=== PATIENT | female | born 1970 | race Hispanic/Latino ===

== ENCOUNTER 2016-08-26 19:08 | Emergency (ER) | payer OTHER ==
[~2016-08-26] VITALS: Ht 162.6 cm; Wt 85.9 kg
[~2016-08-26 19:08] MED LIST: DICY20TA33 PO; HYDR-4003 PO; IBUP-1827 PO; LACT10SO60 PO; LISI10TA PO; NAPR250T PO
[2016-08-26 19:15] VITALS: BP 177/97; PULSE 66; RESP 20; O2SAT 98
[2016-08-26 20:36] LABS: BASOPHILS % (AUTO) 0.2 % (0-3); EOSINOPHILS % (AUTO) 2.9 % (0-5); MONOCYTES % (AUTO) 6.7 % (4-12); Mean Corpuscular Hemoglobin 29.9 pg (27.0-35.0); Mean Corpuscular Volume 87.9 fL (81-100); NEUTROPHILS % (AUTO) 61.3 % (40-74); Platelet Count 117 bil/L (150-400)
[2016-08-26 20:47] LABS: Magnesium 2.1 mg/dL (1.6-2.6)
--- NOTE | 2016-08-26 21:03 | ED.REPORT ---
HPI-Abd Pain F 40 and Over Date of Service Aug 26, 2016 ED Provider: Giovany Pascual MD A 46 year old female with a history of alcoholic hepatitis, anxiety, hypertension, cholecystectomy, reflux, stomach ulcer, and common bile duct problems presents to the ED complaining of abdominal pain. Her pain is similar to pain that she has felt before with her ulcer, and is located in the same place. The pain has been intermittent for the last month, but became acute today. She describes her discomfort as feeling bloated and "bruised from the inside." The pt used cocaine yesterday, but denies recent alcohol use. Nursing Notes Stated Complaint: STOMACH HURTS Chief Complaint: Female Abdominal Pain Nursing Notes Reviewed: Yes Allergies: Coded Allergies: heparin (Verified Allergy, Severe, delayed hypersensitivity reaction, ) Scheduled Lactulose (Lactulose) 20 Gm/30 Ml Solution 20 GM PO TID Lisinopril (Lisinopril) 10 Mg Tablet 10 MG PO DAILY Ondansetron ODT (Ondansetron ODT) 8 Mg Tab.rapdis 4-8 MG PO QID Scheduled PRN Dicyclomine (Bentyl) 20 Mg Tablet 20 MG PO QID PRN PRN cramps Hydrocodone-Acetaminophen 5-325 mg (Hydrocodone-Acetaminophen 5-325 mg) 1 Each Tablet 1 TABLET PO Q4H PRN PRN For Pain Ibuprofen (Ibuprofen) 600 Mg Tablet 600 MG PO QID PRN PRN For Pain Naproxen (Naproxen) 250 Mg Tablet 250 MG PO BID PRN PRN For Pain General Time Seen by MD: 21:02 Chief Complaint Abdominal pain Hx Obtained From: Patient Arrived By: Walk-in Sudden in Onset?: No Recent Healthcare: Recent doctor visit, Recent hospitalization Similar Sx Previous: Yes Past Medical History Past Medical History Notes: PCP: [facility] Past Medical History Alcoholic hepatitis Anxiety Skin abscesses Stomach ulcer Reflux Common bile duct problems Reports: Hypertension Reports: Pancreatitis Past Surgical History Oophorectomy left Reports: Cholecystectomy Family History Noncontributory Smoking History Never Smoker Social History Drug Use: Cocaine, THC Other Social History: Local resident Occupation lives with brother and his 7 kids and father, no work or school Ambulatory Status Independent Review of Systems bloated Constitutional: Denies: Chills, Fever Respiratory: Denies: Non-productive cough, Shortness of breath Cardiovascular: Denies: Chest pain GI: Reports: Abdominal pain Musculoskeletal: Denies: Back pain, Neck pain Complete sys rev & neg: except as marked. Skin: Denies Rash Physical Exam Vital Signs Vital Signs (First) Date Time Temp Pulse Resp B/P Pulse Ox O2 Delivery O2 Flow Rate FiO2 08/26/16 19:15 36.1 66 20 177/97 98 Room Air Initial VS: Reviewed, Vital signs abnormal General/Constitutional: Awake, Alert, Well hydrated Respiratory / Chest: Atraumatic, Breath sounds NL, Breath sounds = bilat, No respiratory distress Cardiovascular: Heart rate NL, Regular rhythm, Heart sounds NL Abdomen: Atraumatic, Soft mild epigastric tenderness, otherwise nontender Back: Atraumatic, Full range of motion, No CVA tenderness Head / Eyes: Atraumatic, Normocephalic, PERRL, EOMI ENT: Atraumatic, Airway patent, Mucous membranes moist Skin: Atraumatic, Color NL, No rash, Warm, Dry Neurologic: Oriented X3, Speech NL, No motor deficits, No sensory deficits Neck: Atraumatic, Supple, Full range of motion Upper Extremity / MS: Atraumatic, Full range of motion Lower Extremity / Pelvis / MS: Atraumatic, Full range of motion Psychiatric: Affect NL, Mood NL Interpretation & Diagnostics Lab Results Interpretation Result Diagram: 08/26/16 2004 08/26/16 2004 Test 08/26/16 19:56 08/26/16 20:04 Urine Color Yellow (YELLOW) Urine Appearance Hazy (CLEAR,HAZY) Urine pH 5.5 (5.0-8.0) Urine Specific [place] 1.033 (1.003-1.035) Urine Protein Negativemg/dL (NEG,TRACE) Urine Glucose (UA) Negativemg/dL (NEGATIVE) Urine Ketones Negativemg/dL (NEGATIVE) Urine Occult Blood Trace (NEGATIVE) Urine Nitrite Negative (NEGATIVE) Urine Bilirubin Negative (NEGATIVE) Urine Urobilinogen Normalmg/dL (NORMAL) Urine Leukocyte Esterase Negative (NEGATIVE) Urine RBC 0-2/hpf (0-2) Urine WBC 0-5/hpf (0-5) Urine Epithelial Cells Many/hpf (NONE-MOD) Urine Crystals None seen (NONE SEEN) Urine Bacteria Few/hpf (NONE-FEW) Urine Hyaline Casts None/lpf (NONE) Urine Granular Casts None seen (NONE SEEN) Urine Waxy Casts None seen (NONE SEEN) Urine Red Blood Cell Casts None seen (NONE SEEN) Urine White Blood Cell Casts None seen (NONE SEEN) Urine Mucus Present (None Seen) Urine Trichomonas None seen (NONE SEEN) Urine Yeast None (NONE SEEN) Urinalysis Comment None Urine Culture Reflexed Not indicated Hold Urine Received (Received) White Blood Count 9.0th/mm3 (3.8-10.1) Red Blood Count 4.81mil/mm3 (3.90-5.20) Hemoglobin 14.4g/dL (12.0-15.6) Hematocrit 42.3% (35.0-46.0) Mean Corpuscular Volume 87.9fL (81-100) Mean Corpuscular Hemoglobin 29.9pg (27.0-35.0) Mean Corpuscular Hemoglobin Concent 34.0% (32.0-37.0) Red Cell Distribution Width 13.1% (12.3-15.4) Platelet Count 117bil/L (150-400) Neutrophils (%) (Auto) 61.3% (40-74) Lymphocytes (%) (Auto) 28.7% (14-46) Monocytes (%) (Auto) 6.7% (4-12) Eosinophils (%) (Auto) 2.9% (0-5) Basophils (%) (Auto) 0.2% (0-3) Sodium Level 139mEq/L (134-144) Potassium Level 4.3mEq/L (3.5-5.2) Chloride Level 103mEq/L (97-108) Carbon Dioxide Level 21mmol/L (18-29) Blood Urea Nitrogen 12mg/dL (6-24) Creatinine 0.94mg/dL (0.57-1.00) Estimat Glomerular Filtration Rate 92mL/min (>59) Glucose Level 93mg/dL (60-99) Calcium Level 8.7mg/dL (8.5-10.1) Magnesium Level 2.1mg/dL (1.6-2.6) Total Bilirubin 0.2mg/dL (0.0-1.2) Aspartate Amino Transf (AST/SGOT) 18U/L (0-50) Alanine Aminotransferase (ALT/SGPT) 15U/L (0-32) Alkaline Phosphatase 138U/L (25-150) Troponin T 0.010ug/L (0.0-0.011) Total Protein 7.2g/dL (6.4-8.4) Albumin 3.9g/dL (3.4-5.0) Lipase 21U/L (13-60) ECG Interpretation ECG Interpretation: normal sinus rhythm with a rate of 66 ST elevation, probable normal early repol pattern Time: 23:06 Interpreted by: ED physician X-Ray Chest Interpretation Chest Xray Interpretation: no acute findings no pneumonia Interpretation / Wet Read by: Wet read ED physician Re-Eval/Medical Decision Med Decision/Clinical Course 46-year-old female with recurrent ER visits for nonspecific abdominal pain. She was treated with IV antacid matilde and nausea medication. Labs are completely normal. There is no evidence of serious illness. She is to follow- up with her regular doctor. She was a little upset that she was not getting narcotic pain medication to go home with. Source of Hx: Old records Re-Evaluation/Progress : Time of Eval: 00:49 Patient Status: Condition improved Re-Evaluation/Progress Note: Pt rechecked, who is resting. She is informed of her radiology and lab results, as well as the diagnosis and plan for discharge. The pt understands and agrees with the plan. All questions are addressed at this time. Counseled Regarding: Diagnosis, Lab results, Need for follow-up, When/why to return to ED Discharge & Departure Primary Impression: Epigastric abdominal pain Disposition: Home Discharge Condition All VS Reviewed: Yes Condition: Stable Additional Instructions: Your labs, EKG, and chest x-ray show no evidence of serious illness. You will need to have further evaluation for the cause of your pain through your primary doctor. Your primary doctor also needs to be responsible for chronic pain management. I do not recommend that you use narcotics for this pain. Ondansetron 8 mg, one half to one tablet dissolved orally 3-4 times daily as needed for nausea and vomiting, #20 prescription written. Referrals: Esther Martinez (PCP) Scribe Attestation Portions of this note were transcribed by Tyra Atkinson. I, Dr. Pascual personally performed the history, physical exam and medical decision-making; I reviewed and confirmed the accuracy of the information in the transcribed note. Signed by: Carlo Oh, 08/27/2016 and 00:58. copies to: Esther Martinez Howard L MD Aug 26, 2016 21:03 TYRA ATKINSON Aug 26, 2016 21:25
[2016-08-26 21:07] LABS: APPEARANCE,URINE HAZY (CLEAR,HAZY); COLOR,URINE YELLOW (YELLOW); OCCULT BLOOD,URINE TRACE (NEGATIVE); PH,URINE 5.5 (5.0-8.0); UROBILINOGEN,URINE NORMAL (NORMAL)
[2016-08-26] MEDS ORDERED: 0.9% Sodium Chloride 1,000 ML IV ONE (21:08)
[2016-08-26] MEDS ORDERED: Pantoprazole 4 mg/mL 10 mL Inj IVPUSH ONE (21:10)
[2016-08-26] MEDS: Ondansetron 2 mg/mL 2 mL Inj IVPUSH PRN ×3 (21:25→22:44)
[2016-08-26 22:02] VITALS: BP 225/96; PULSE 68; RESP 22; O2SAT 100
[2016-08-26] MEDS: HYDROmorphone 0.5 mg/0.5 mL iSecure Syringe IVPUSH PRN ×2 (22:14→22:44)
[2016-08-26 22:35] VITALS: BP 187/93; PULSE 71; O2SAT 99
[2016-08-26] MEDS ORDERED: MeTOProlol 1 mg/mL 5 mL Inj IVPUSH ONE (23:00)
[2016-08-26 23:34] VITALS: BP 195/90; PULSE 57; RESP 24; O2SAT 98
[2016-08-27 00:55] VITALS: BP 196/103; PULSE 61; RESP 20; O2SAT 99
[2016-08-27] MEDS ORDERED: ONDA8TAB10 PO (00:55)
[2016-08-27 01:00] VITALS: BP 196/103; PULSE 61; RESP 20; O2SAT 99
--- NOTE | 2016-08-27 08:01 | DRSVH ---
PROCEDURE: X-RAY CHEST, TWO VIEWS ([id number]) INDICATIONS: chest pain TECHNIQUE: 2 views of the chest were acquired. COMPARISON: [facility], CR, CHEST 2VW, 07/29/2009, 3:44. FINDINGS: Surgical changes and devices: Cholecystectomy clips noted. Lungs and pleura: No pleural effusions or pneumothorax. Lungs are clear. Mediastinum: Mediastinal contours are normal. Heart size is normal. Bones and chest wall: No suspicious bony abnormalities. Soft tissues appear unremarkable. IMPRESSION: No acute cardiopulmonary disease. Dictated by: Jill Hidalgo M.D. on 08/27/2016 at 7:59 Approved by: Jill Hidalgo M.D. on 08/27/2016 at 7:59
== END 2016-08-27 01:01 | disposition home or self-care (01) ==
LOC: SED 19:08
DX: R10.13 Epigastric pain (principal); I10 Essential (primary) hypertension; Z88.8 Allergy status to other drugs, medicaments and biological substances
CPT/HCPCS: 36415; 71020; 80053; 81000; 81025; 83690; 83735; 84484; 85025; 93005; 96361; 96374; 96375; 96376; 99285; J1170; J2405; J7030

== ENCOUNTER 2016-11-29 20:09 | Emergency (ER) | payer OTHER ==
[~2016-11-29] VITALS: Ht 165.1 cm; Wt 81.8 kg
[~2016-11-29 20:09] MED LIST changes: +ONDA8TAB10 PO
[2016-11-29 20:11] VITALS: BP 217/100; RESP 20; O2SAT 99
[2016-11-29 20:52] VITALS: BP 202/97; PULSE 80; RESP 22; O2SAT 98
[2016-11-29 21:01] LABS: BASOPHILS % (AUTO) 0.4 % (0-3); EOSINOPHILS % (AUTO) 1.6 % (0-5); MONOCYTES % (AUTO) 5.8 % (4-12); NEUTROPHILS % (AUTO) 66.2 % (40-74); Platelet Count 292 bil/L (150-400)
--- NOTE | 2016-11-29 21:12 | ED.REPORT ---
HPI-General Illness Date of Service Nov 29, 2016 ED Provider: Richmond León MD Patient is a 46 year old female who presents to the ED complaining of a dry cough onset 3 days ago. Associated symptoms include sore throat, discharge in both eyes but L >R eye upon waking, chills, headache (onset 2 days ago, intermittent, sharp), and abdominal pain. She denies fevers, SOB, chest pain, rhinorrhea, or any other symptoms. Nursing Notes Stated Complaint: COUGH Chief Complaint: ENT & Mouth Nursing Notes Reviewed: Yes Allergies: Coded Allergies: heparin (Verified Allergy, Severe, delayed hypersensitivity reaction, ) Scheduled Lactulose (Lactulose) 20 Gm/30 Ml Solution 20 GM PO TID Lisinopril (Lisinopril) 10 Mg Tablet 10 MG PO DAILY Ondansetron ODT (Ondansetron ODT) 8 Mg Tab.rapdis 4-8 MG PO QID Prednisone (PredniSONE) 20 Mg Tablet 40 MG PO DAILY Scheduled PRN Dicyclomine (Bentyl) 20 Mg Tablet 20 MG PO QID PRN PRN cramps Guaifenesin/Codeine Phosphate (Cheratussin AC Syrup) 118 Ml Liquid 5 ML PO BID PRN PRN For Cough Hydrocodone-Acetaminophen 5-325 mg (Hydrocodone-Acetaminophen 5-325 mg) 1 Each Tablet 1 TABLET PO Q4H PRN PRN For Pain Ibuprofen (Ibuprofen) 600 Mg Tablet 600 MG PO QID PRN PRN For Pain Naproxen (Naproxen) 250 Mg Tablet 250 MG PO BID PRN PRN For Pain General Time Seen by MD: 20:38 Chief Complaint Cough Hx Obtained From: Patient Arrived By: Walk-in Past Medical History Past Medical History Notes: PCP: [facility] Past Medical History Alcoholic hepatitis Anxiety Skin abscesses Stomach ulcer Reflux Common bile duct problems Reports: Hypertension, Denies: Asthma Reports: Pancreatitis Past Surgical History Oophorectomy left Reports: Cholecystectomy Family History Noncontributory Smoking History Never Smoker Social History Drug Use: Cocaine, THC Other Social History: Local resident Occupation lives with brother and his 7 kids and father, no work or school Ambulatory Status Independent Review of Systems +discharge from eyes Full Review of Systems Constitutional: Reports: Chills, Denies: Fever Ears / Nose / Throat: Reports: Sore throat Respiratory: Reports: Non-productive cough, Denies: Shortness of breath Cardiovascular: Denies: Chest pain GI: Reports: Abdominal pain Allergy / Immune: Denies: Rhinorrhea Neurologic: Reports: Headache Complete sys rev & neg: except as marked. Physical Exam Vital Signs Vital Signs Date Time Temp Pulse Resp B/P Pulse Ox O2 Delivery O2 Flow Rate FiO2 11/29/16 22:27 71 18 182/107 98 Room Air 11/29/16 20:52 80 22 202/97 98 Room Air 11/29/16 20:11 36.2 70 20 217/100 99 Room Air Initial VS: Reviewed General/Constitutional: Well-developed, Well-nourished Head / Eyes: Atraumatic, Normocephalic Neck: Full range of motion Respiratory: Breath sounds normal, Clear to auscultation, No respiratory distress Cardiovascular: Regular rate & rhythm, Heart sounds normal, Intact distal pulses Abdomen / GI: Soft, Non-tender, No distention Extremities: Vascular intact, Neuro intact, No swelling, No tenderness Neurologic: Alert, Oriented, Nonfocal Psychiatric: Mood/affect normal, Behavior normal, Normal thought content Skin: Warm, Dry R upper arm well healed scar. Interpretation & Diagnostics Lab Results Interpretation Result Diagram: 11/29/16204911/29/162049 Test 11/29/16 20:50 White Blood Count 10.5th/mm3 (3.8-10.1) Red Blood Count 4.79mil/mm3 (3.90-5.20) Hemoglobin 13.9g/dL (12.0-15.6) Hematocrit 41.2% (35.0-46.0) Mean Corpuscular Volume 86.0fL (81-100) Mean Corpuscular Hemoglobin 29.0pg (27.0-35.0) Mean Corpuscular Hemoglobin Concent 33.7% (32.0-37.0) Red Cell Distribution Width 13.2% (12.3-15.4) Platelet Count 292bil/L (150-400) Neutrophils (%) (Auto) 66.2% (40-74) Lymphocytes (%) (Auto) 25.7% (14-46) Monocytes (%) (Auto) 5.8% (4-12) Eosinophils (%) (Auto) 1.6% (0-5) Basophils (%) (Auto) 0.4% (0-3) Sodium Level 141mEq/L (134-144) Potassium Level 3.4mEq/L (3.5-5.2) Chloride Level 103mEq/L (97-108) Carbon Dioxide Level 22mmol/L (18-29) Blood Urea Nitrogen 14mg/dL (6-24) Creatinine 1.01mg/dL (0.57-1.00) Estimat Glomerular Filtration Rate 85mL/min (>59) Glucose Level 107mg/dL (60-99) Calcium Level 9.7mg/dL (8.5-10.1) Magnesium Level 2.0mg/dL (1.6-2.6) Total Bilirubin 0.3mg/dL (0.0-1.2) Aspartate Amino Transf (AST/SGOT) 16U/L (0-50) Alanine Aminotransferase (ALT/SGPT) 12U/L (0-32) Alkaline Phosphatase 129U/L (25-150) Troponin T 0.010ug/L (0.0-0.011) Total Protein 8.0g/dL (6.4-8.4) Albumin 4.1g/dL (3.4-5.0) Lab values outside NL range: no clinical significance. ECG Interpretation ECG Interpretation: sinus rate 67 left axis deviation no ST segment elevation or T wave abnL compaired to prior 08/26/16 unchanged Time: 22:15 Interpreted by: ED physician X-Ray Chest Interpretation Chest Xray Interpretation: IMPRESSION: Negative chest Dictated by: Teodoro Beatty M.D. on 11/29/2016 at 21:24 Approved by: Teodoro Beatty M.D. on 11/29/2016 at 21:24 View: AP & lat Interpretation / Wet Read by: Interpret - Radiologist Re-Eval/Medical Decision Med Decision/Clinical Course Patient is a 46 year old female who presents to the ED complaining of a dry cough onset 3 days ago. Associated symptoms include sore throat, discharge in both eyes but L >R eye upon waking, chills, headache (onset 2 days ago, intermittent, sharp), and abdominal pain. She denies fevers, SOB, chest pain, rhinorrhea, or any other symptoms. Here in the emergency department the patient is quite hypertensive with a systolic in the 200s and diastolic in the 100s, she is however otherwise afebrile and hemodynamically stable. EKG was obtained and interpreted by myself as above and demonstrated no acute ischemic changes. CBC and CMP were unremarkable. There is no evidence of kidney injury and troponin is not elevated. While the patient does report some mild headache is similar to previous ones and is associated with her coughing. She denies any blurry vision or neurologic deficits. She reports that she is prescribed an antihypertensive and recently changed her blood pressure medications though has not been missing doses. She states that she has known problems with her blood pressure has been working on this with her primary care doctor. At this time I see no evidence of end organ damage related to her high blood pressure and on repeat testing her blood pressure is now in the 180s over the 90s. While her blood pressures improved she is still markedly hypertensive. That being said, I do not see any indication that she requires emergent management of her blood pressure with IV medications. She will call her primary care physician first thing tomorrow to arrange for follow-up and ongoing titration of her antihypertensives. Her primary complaint today is her cough. Chest x-ray demonstrates no evidence of acute cardiopulmonary process, pulmonary edema, pneumonia or pneumothorax. Further history of response to bronchodilators responded well to albuterol MDI in the emergency room today. Her cough is consistent with bronchitis and I arrived her a course of prednisone and gave her one dose here. I prescribed her Cheratussin that she may use at night and I advised her not to drive for taking this medication or a combined medication with other narcotic pain medications or alcohol. Prior to discharge follow-up and return precautions were reviewed in detail with the patient who verbalized understanding and agreement with the plan. The patient was discharged in stable condition. Time of Eval: 22:28 Re-Evaluation/Progress Note: Discussed plan for discharge with follow up for blood pressure management. Patient understands and agrees with plan. All questions addressed at this time. Counseled Regarding: Diagnosis, Lab results, Need for follow-up, When/why to return to ED Discharge & Departure Primary Impression: Bronchitis Additional Impressions: Cough Elevated blood pressure reading Elevated blood pressure reading with diagnosis of hypertension History of wheezing Disposition: Home Discharge Condition All VS Reviewed: Yes Condition: Stable Additional Instructions: Thank you for seeking care at the emergency room. It is difficult for us to make definitive diagnoses in the ED but we believe that you are experiencing bronchitis. Please use albuterol inhaler with spacer as directed and take full course of prednisone. You may use the codeine and cough medicine cough syrup as needed at night. Our primary goal today in the ED was to evaluate you for any life-threatening conditions. Your evaluation was reassuring. You should follow-up with your primary doctor in the next 1-2 days to reevaluate your blood pressure. Your blood pressure was very high today and you may need to be on additional blood pressure medications or higher doses of blood pressure medications. You should return to the ED immediately if you develop worsening cough, fevers, vomiting, cough, shortness of breath, chest pain, lightheadedness, headache, blurry vision, weakness or any other concerning signs or symptoms. Thank you for letting us partake in your care today. Referrals: Esther Martinez (PCP) Scribe Attestation Portions of this note were transcribed by Destinee Encarnacion. I, Dr. León personally performed the history, physical exam and medical decision-making; I reviewed and confirmed the accuracy of the information in the transcribed note. Signed by: Destinee Encarnacion 11/29/16, 2199 copies to: Esther Martinez Beck O MD Nov 29, 2016 21:12 DESTINEE ENCARNACION Nov 29, 2016 22:28
[2016-11-29 21:25] LABS: TROPONIN T 0.01 ug/L (0.0-0.011)
--- NOTE | 2016-11-29 21:25 | DRSVH ---
PROCEDURE: X-RAY CHEST, TWO VIEWS ([id number]) INDICATIONS: cough TECHNIQUE: 2 views of the chest were acquired. COMPARISON: None. FINDINGS: Surgical changes and devices: Surgical clips projecting in the upper abdomen.. Lungs and pleura: No pleural effusions or pneumothorax. Lungs are clear. Mediastinum: Mediastinal contours are normal. Heart size is normal. Bones and chest wall: No suspicious bony abnormalities. Soft tissues appear unremarkable. IMPRESSION: Negative chest Dictated by: Teodoro Beatty M.D. on 11/29/2016 at 21:24 Approved by: Teodoro Beatty M.D. on 11/29/2016 at 21:24
[2016-11-29 22:27] VITALS: BP 182/107; PULSE 71; RESP 18; O2SAT 98
[2016-11-29] MEDS ORDERED: Albuterol HFA 60 Puff 8 Gm Inhaler INHALATION PRN (22:30)
[2016-11-29] MEDS ORDERED: HYDROcodone-APAP 5-325 mg Tablet PO ONE (22:30)
[2016-11-29] MEDS ORDERED: predniSONE 20 mg Tablet PO ONE (22:30)
[2016-11-29] MEDS ORDERED: PRE20 PO (22:33)
[2016-11-29] MEDS ORDERED: GUAI118L13 PO (22:33)
[2016-11-29] MEDS ORDERED: _Albuterol-HFA 60 Puff Inhaler INHALATION PRN (22:35)
== END 2016-11-29 22:59 | disposition home or self-care (01) ==
LOC: SED 20:09
DX: J40 Bronchitis, not specified as acute or chronic (principal); I10 Essential (primary) hypertension; R51 Headache; H57.9 Unspecified disorder of eye and adnexa; J02.9 Acute pharyngitis, unspecified; K21.9 Gastro-esophageal reflux disease without esophagitis; Z87.09 Personal history of other diseases of the respiratory system; Z88.8 Allergy status to other drugs, medicaments and biological substances

== ENCOUNTER 2017-02-05 12:26 | Emergency (ER) | payer OTHER ==
[~2017-02-05] VITALS: Ht 162.6 cm; Wt 87.3 kg
[~2017-02-05 12:26] MED LIST changes: +GUAI118L13 PO; +PRE20 PO
[2017-02-05 12:28] VITALS: BP 143/84; PULSE 70; RESP 18; O2SAT 98
[2017-02-05 13:43] LABS: BASOPHILS % (AUTO) 0.3 % (0-3); EOSINOPHILS % (AUTO) 2.9 % (0-5); MONOCYTES % (AUTO) 6.3 % (4-12); Mean Corpuscular Hemoglobin 29.2 pg (27.0-35.0); Mean Corpuscular Volume 87.9 fL (81-100); NEUTROPHILS % (AUTO) 57.9 % (40-74); Platelet Count 253 bil/L (150-400)
--- NOTE | 2017-02-05 13:58 | ED.REPORT ---
HPI-Abd Pain F 40 and Over Date of Service Feb 05, 2017 ED Provider: Savanah Parker History of Present Illness: right ovary pain, have an appointment next month on 02/21/2017. for pre op for removal of ovary. " can't take the pain, the vicodin is not working" Martinez is primary care. taking lisinopril and amitriptlyine and vicodin from the surgeon. . denies hx of chronic pain medication. nausea, no vomiting. 05/28. vicodin is not helping. 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 Nursing Notes Chief Complaint: Female Abdominal Pain Nursing Notes Reviewed: Yes Allergies: Coded Allergies: heparin (Verified Allergy, Severe, delayed hypersensitivity reaction, ) Scheduled Amitriptyline (Amitriptyline) 50 Mg Tab 50 MG PO HS Lisinopril (Lisinopril) 40 Mg Tablet 40 MG PO DAILY Omeprazole (Omeprazole) 20 Mg Capsule.dr 20 MG PO DAILY Scheduled PRN Hydrocodone-Acetaminophen 5-325 mg (Hydrocodone-Acetaminophen 5-325 mg) 1 Each Tablet 1 TABLET PO Q4H PRN PRN For Pain General Time Seen by MD: 13:57 Chief Complaint Other (right ovary pain) Hx Obtained From: Patient Sudden in Onset?: No Onset Occurred: More than a week ago... (2 months) Symptom Duration: Since onset Past Medical History Past Medical History Notes: PCP: [place] Past Medical History Alcoholic hepatitis Anxiety Skin abscesses Stomach ulcer Reflux Common bile duct problems Reports: Hypertension Reports: Pancreatitis Past Surgical History Oophorectomy left Reports: Cholecystectomy Family History Noncontributory Smoking History Never Smoker Social History Drug Use: Cocaine, THC Other Social History: Local resident Occupation [facility] [employer], work at [employer] 02/05/2017 Ambulatory Status Independent Review of Systems Basic Review of Systems Eyes: Vision NL, No discharge Skin: No bruising, No rash, No itch Psychiatric: Normal thought content Physical Exam Vital Signs Vital Signs (First) Date Time Temp Pulse Resp B/P Pulse Ox O2 Delivery O2 Flow Rate FiO2 02/05/17 12:28 36.4 70 18 143/84 98 Room Air Initial VS: Reviewed, Vital signs normal Head / Eyes: Atraumatic, Normocephalic, PERRL ENT: Mucous membranes moist, Conjunctiva normal, No scleral icterus Neck: Supple, Non-tender, Full range of motion Lymphatic: No lymphadenopathy Extremities: Vascular intact, Neuro intact, No swelling, No tenderness Skin: Warm, Dry, No cyanosis Neurologic: Alert, Oriented, Nonfocal Psychiatric: Mood/affect normal, Behavior normal, Normal thought content General/Constitutional: Awake, Alert, No acute distress, Well appearing, Well developed, Well hydrated, Well nourished, Cooperative, Not toxic appearing Respiratory / Chest: Atraumatic, Breath sounds NL, Breath sounds = bilat, No respiratory distress, No rales, No rhonchi, No wheezing Cardiovascular: Heart rate NL, Regular rhythm, Heart sounds NL, No gallop, No murmurs, No rubs Abdomen: Atraumatic, Soft, No guarding, No rebound, BS normoactive, No distention Back: Atraumatic, Inspection NL, Full range of motion, Painless range of motion Head / Eyes: Atraumatic, Normocephalic, PERRL, EOMI, No nystagmus Interpretation & Diagnostics Lab Results Interpretation Result Diagram: 02/05/17 1332 02/05/17 1332 Test 02/05/17 13:32 White Blood Count 7.2th/mm3 (3.8-10.1) Red Blood Count 4.38mil/mm3 (3.90-5.20) Hemoglobin 12.8g/dL (12.0-15.6) Hematocrit 38.5% (35.0-46.0) Mean Corpuscular Volume 87.9fL (81-100) Mean Corpuscular Hemoglobin 29.2pg (27.0-35.0) Mean Corpuscular Hemoglobin Concent 33.2% (32.0-37.0) Red Cell Distribution Width 13.6% (12.3-15.4) Platelet Count 253bil/L (150-400) Neutrophils (%) (Auto) 57.9% (40-74) Lymphocytes (%) (Auto) 32.5% (14-46) Monocytes (%) (Auto) 6.3% (4-12) Eosinophils (%) (Auto) 2.9% (0-5) Basophils (%) (Auto) 0.3% (0-3) Sodium Level 139mEq/L (134-144) Potassium Level 4.0mEq/L (3.5-5.2) Chloride Level 103mEq/L (97-108) Carbon Dioxide Level 22mmol/L (18-29) Blood Urea Nitrogen 16mg/dL (6-24) Creatinine 0.83mg/dL (0.57-1.00) Estimat Glomerular Filtration Rate 106mL/min (>59) Glucose Level 78mg/dL (60-99) Calcium Level 9.3mg/dL (8.5-10.1) Magnesium Level 1.9mg/dL (1.6-2.6) Total Bilirubin 0.2mg/dL (0.0-1.2) Aspartate Amino Transf (AST/SGOT) 15U/L (0-50) Alanine Aminotransferase (ALT/SGPT) 19U/L (0-32) Alkaline Phosphatase 132U/L (25-150) Total Protein 6.7g/dL (6.4-8.4) Albumin 4.0g/dL (3.4-5.0) Lipase 25U/L (13-60) Lab Results Interpretation: patient unable to provide urine US Focused OB per verbal report, cyst on left ovary is now a simple cyst and smaller than 6 weeks ago. Re-Eval/Medical Decision Med Decision/Clinical Course 46 year old presents to the ER for pain management for her "right ovary pain" patient with long hx of chronic abd pain. Patient with Esther Martinez providing ongoing pain management. US shows simple cyst and smaller than previous cyst. Labs are normal. Patient is unable to provide a urine. No sign of torsion or abscess or appendicitis. Patient is encouraged to follow with primary care for ongoing pain managment Discharge & Departure Primary Impression: Abdominal pain Abdominal location: right lower quadrant Qualified Code: R10.31 - Right lower quadrant pain Disposition: Home Patient Instructions: Chronic Pain (ED) Additional Instructions: Your CBC and CMP are all normal. That is very reassuring. At this time, you have been unable to provide a urine. The ultrasound does not show any new abnormalities. As Esther is managing your pain, you will need to follow with her for any changes. You received # 30 of hydrocodone on 02/01/2017, 4 days ago. You have been receiving ongoing chronic pain medication. Many times it can be difficult to get your pain under control. This is best done with primary care. Referrals: Esther Martinez (PCP) EDSupervising Provider for APC: Oswald Coronel MD copies to: Esther Martinez Sue ARNP Feb 05, 2017 13:58
[2017-02-05 14:06] LABS: Magnesium 1.9 mg/dL (1.6-2.6)
[2017-02-05] MEDS ORDERED: AMT50T PO (14:22)
[2017-02-05] MEDS ORDERED: OMEP20CA11 PO (14:22)
[2017-02-05] MEDS ORDERED: LISI40TA PO (14:22)
--- NOTE | 2017-02-06 09:44 | DRSVH ---
PROCEDURE: US PELVIC SONOGRAM WITH DOPPLER, LIMITED INDICATIONS: pain- RT OVARY ONLY -R/O TORSION TECHNIQUE: Real-time scanning was performed of the pelvic organs, with image documentation. Additional endovagi nal scanning was necessary due to incomplete visualization of the adnexal and endometrial structures by transabdominal scanning. COMPARISON: [facility], US, US PELVIC+TRANSVAG, 01/03/2017, 12:41. FINDINGS: (orthogonal measurements) Right ovary size: 3.17 cm, 2.34 cm, 3.63 cm Transabdominal scanning: Limited scanning through the kidneys shows no hydronephrosis. No pathologi c free abdominal or pelvic fluid. Endovaginal scanning: Uterus: Not evaluated. Ovaries: The left ovary is surgically absent. Right ovary contains a simple cyst measuring 2.2 x 1.9 x 1.8 cm. Doppler assessment demonstrates normal right ovarian venous and arterial flow. IMPRESSION: Limited exam demonstrating simple cyst involving the right ovary and normal right ovarian blood flow is present. Dictated by: Taz ENGLE Interpreted: Tabitha Martin MD on 02/05/2017 at 15:46 Approved by: Tabitha Martin M.D. on 02/06/2017 at 9:42
== END 2017-02-05 15:38 | disposition home or self-care (01) ==
LOC: SED 12:26
DX: R10.31 Right lower quadrant pain (principal); I10 Essential (primary) hypertension; K21.9 Gastro-esophageal reflux disease without esophagitis; Z90.49 Acquired absence of other specified parts of digestive tract; Z88.8 Allergy status to other drugs, medicaments and biological substances

== ENCOUNTER → 2017-05-14 | Day surgery (SDC) | payer OTHER ==
[2017-05-14] VITALS (12 sets, daily range): BP systolic 145–176; BP diastolic 68–89; PULSE 64–94; RESP 12–19; O2SAT 91–99
[~2017-05-14] VITALS: Ht 160 cm; Wt 89.0 kg
[~2017-05-14] MED LIST changes: +AMT50T PO; +Atropine 0.4 mg/mL Inj IVPUSH PRN; +Bupivacaine-MPF 0.5% 30 mL Inj INFILTRATE ONE; +CeFAZolin 2 Gm/50 mL D5W IV Premix IV SCH; +CeFAZolin Inj 2 GM in IV Premix 1 EACH IV ONE; -DICY20TA33 PO; +Dexamethasone 4 mg/mL Inj ONE; +EPHEDrine Sulfate 50 mg/mL Inj IM PRN; +EPHEDrine Sulfate 50 mg/mL Inj IVPUSH PRN; -GUAI118L13 PO; +Glycopyrrolate 0.2 MG/ML 1mL Inj ONE; -HYDR-4003 PO; +HYDR12.55 PO; +HYDROmorphone 1 mg/mL Inj IVPUSH PRN; +HYDROmorphone 1 mg/mL Inj ONE; -IBUP-1827 PO; -LACT10SO60 PO; +LISI-567 PO; -LISI10TA PO; +Labetalol 5 mg/mL 20 mL Inj IV PRN; +Lactated Ringer's 1,000 ML IV ONE; +Lactated Ringer's 1,000 ML IV SCH; +Lactated Ringer's 500 ML IV PRN; +MetoCLOpramide 5 mg/mL 2 mL Inj IVPUSH PRN; -NAPR250T PO; +NAPR250T5 PO; +Neostigmine 1 mg/mL 10 mL Inj ONE; +OMEP20CA11 PO; -ONDA8TAB10 PO; +Ondansetron 2 mg/mL 2 mL Inj IVPUSH PRN; +Ondansetron 2 mg/mL 2 mL Inj ONE; -PRE20 PO; +Phenylephrine 10,000 mCg/mL Inj IVPUSH PRN; +Propofol 10,000 mCg/mL 20 mL Inj ONE; +Rocuronium 10 mg/mL 5 mL Inj ONE; +Succinylcholine Chloride 20 mg/mL 5 mL Inj ONE; +diphenhydrAMINE 25 mg Capsule PO PRN; +fentaNYL-PF 50 mCg/mL 2 mL Inj ONE; +hydrOXYzine Inj 50 MG/1 mL SDV IM ONE
--- NOTE | 2017-05-14 08:02 | PCM.HPANE ---
Patient Data Surgeon Admitting Provider: Attending Provider:Spike Bradshaw MD Primary Care Physician:Esther Martinez Other Provider:Tammy Decker Anesthesia Reason for Visit Complex Ovarian Cyst, Chronic Pelvic Pain, Uterine Ht/WT & BMI Height (Feet): 5 Height (Inches): 3.00 Weight (Kilograms): 89 Body Mass Index 34.00 Allergies Coded Allergies: heparin (Verified Allergy, Severe, delayed hypersensitivity reaction, 05/14) Past Anesthesia History Anesthesia History: Denies:: Abnormal Airway, Anesthesia Reactions, Difficult Intubation, Fam Anesthesia Reaction, Fam Malignant Hypertherm, Malignant Hyperthermia Diabetes History Hx Diabetes?: No MRSA MRSA: No Medications Hypertension Medication: Yes Home Meds Incl Beta Berny: No Reported Medications Amitriptyline 50 Mg Tab50 Mg PO HS Ref 0 05/14/17 Lisinopril 20 Mg [id number] Mg PO DAILY 30 Days Ref 0 05/09/17 Discontinued Reported Medications Omeprazole 20 Mg Capsule.dr20 Mg PO BID Ref 0 05/09/17 Naproxen 250 Mg Asrauq547 Mg PO BID PRN For Pain Ref 0 05/09/17 Hydrochlorothiazide 12.5 Mg Juosez90.5 Mg PO DAILY 30 Days Ref 0 05/09/17 Amitriptyline 50 Mg Tab50 Mg PO HS Ref 0 02/05/17 Omeprazole 20 Mg Capsule.dr20 Mg PO DAILY Ref 0 02/05/17 Lisinopril 40 Mg Xuimuf52 Mg PO DAILY 30 Days Ref 0 02/05/17 Hydrocodone-Acetaminophen 5-325 mg 1 Each Tablet1 Tablet PO Q4H PRN For Pain Ref 0 05/03/16 History History of ENT Problems?: No HEENT History: Denies:: Abnormal Airway Cataracts Difficult Intubation Dysphagia Glaucoma Hearing Problem Sinus Problem TMJ Denture Type: None Teeth Condition: Within Normal Limits Hx of Heart Problems?: Yes Cardiovascular History: Positive for:: Hypertension Denies:: AICD Atrial Fibrillation Cardiac Surgery Chest Pain Congestive Heart Failure Edema Heart Murmur Irregular Heartbeat Pacemaker Thrombophlebitis Valvular Heart Disease Hx of Respiratory Problem?: Yes Respiratory History: Denies:: Asthma COPD Chest Surgery Cough Dyspnea Emphysema Hemoptysis Pneumonia Tuberculosis Hx Neurologic Problems?: No Neurological History: Positive for:: Dizziness (ONCE) Denies:: Alzheimer's Disease CVA Dementia Headaches Multiple Sclerosis Parkinson's Disease Seizures Hx of GI Problems?: Yes Other GI Pertinent History: history of pancreatitis Hx of Problems?: No Genitourinary History: Denies:: HX of Hemodialysis Kidney Stones Urinary Tract Infection HX of Peritoneal Dialysis: No Female Hx: Denies:: Currently Endometriosis Pelvic Inflammatory Problems with Breasts? Skin History: Denies:: History Skin Disorders? Pressure Ulcers Hx Musculoskeletal Problems?: No Musculoskeletal History: Denies:: Back Injury Joint Replacement Musculoskeletal Trauma Hx of Psycho/Social Problems?: Yes Psycho Social History: Positive for:: Anxiety Denies:: Bipolar Disorder Hx Depression Suicide Attempt Hx Surgeries?: Yes (LAP TAMELA, OOPHERECTOMY, UTERAL ABLATION) Hx Any Other Health Problems?: Yes Other History: Denies:: Cancer Hospitalization Thyroid Disease History Blood Transfusions: Denies:: Blood Transfuse Reaction Blood Transfusions Hx Diabetes: No Other Pertinent History: chronic pelvic/abd pain Hx Alcohol Use: NoHx Substance Use: No Smoking Status: Never Smoker Have You Smoked inLast 12 mo: No Stop/Bang P-Blood Pressure: treated: Yes B- Body Mass Index > 35 kg/m2: No A- Age over 50: No N- Neck Large Circumference: No G- Gender Male: No COLEEN Risk Assessment: Low Risk, <3 Yes Risk Assessment Category Category 1A: Patient has history of documented sleep apnea, and HAS NOT received any narcotic, sedative or anesthesia administration during this stay. Category 1B: Patient has history of documented sleep apnea, and HAS received any narcotic , sedative or anesthesia administration during this stay Category 2: Patient has SUSPECTED Obstructive Sleep Apnea, and HAS received any narcotic , sedative or anesthesia administration during this stay. Category 3: Patient has SUSPECTED Obstructive Sleep Apnea and HAS NOT received narcotic, sedative or anesthesia administration during this stay. Category 4: Outpatient in Procedural Areas with known sleep apnea or who screen positive for High Risk via the STOP/BANG questionnaire. Exam Exam Vital Signs Vital Signs Date Time Temp Pulse Resp B/P Pulse Ox O2 Delivery O2 Flow Rate FiO2 05/14/17 06:02 36.6 64 16 156/89 98 Room Air General Appearance: Alert, Oriented X3, Cooperative, No Acute Distress HEENT/AIRWAY: MP 3 Lungs: Clear to Auscultation, Normal Air Movement Heart: Exam Unremarkable, Regular Rate/Rhythm, No Murmurs/Rubs/Gallops Meds/Labs/Diagnostics Admission Meds Current Medications Lactated Ringer's (Lr) 1,000 ml @ ud STK-MED ONCE IV Last administered on 05/14t 06:01; Start 05/14/17 at 06:01; Stop 05/14/17 at 06:02; Status DC Plan Impression Patient chart reviewed, patient interviewed and anesthestic plan with risks, benefits, and alternatives discussed, and informed consent obtained. NPO per Anesth. Guidelines: Yes ASA Physical Status: ASA3 Severe Disease Anesthetic Plan: GA Bene/Risks/Altern/Consents: Yes HP Complete Prior to Induction: Yes Logan Holloway MD May 14, 2017 07:06
--- NOTE | 2017-05-14 12:36 | PCM.DIMED ---
Discharge Instructions Date of Service May 14, 2017 Dates of Hospitalization Diet Discharge Diet: No restrictions Activity Discharge Activity: No restrictions Call your provider Call your provider for: Fever or Chills, Shortness of breath, Bleeding, Chest pain, Vomitting, Excessive diarrhea, Weakness (unilateral) Patient Instructions Follow-up with PCP in: 2 weeks Spike Bradshaw MD May 14, 2017 12:36
[2017-05-14] MEDS: fentaNYL-PF 50 mCg/mL 2 mL Inj IVPUSH PRN ×2 (12:55→13:19)
--- NOTE | 2017-05-14 13:12 | PCM.ANEP1 ---
Post Anesthesia PACU Phase 1 Assessment Vital Signs Vital Signs Date Time Temp Pulse Resp B/P Pulse Ox O2 Delivery O2 Flow Rate FiO2 05/14/17 13:05 72 15 167/89 91 Room Air 05/14/17 12:55 94 19 161/85 97 Room Air 05/14/17 12:38 82 17 156/78 98 Room Air 05/14/17 12:35 93 15 154/76 99 Simple Mask 10 05/14/17 12:30 94 15 160/77 98 Simple Mask 10 05/14/17 12:25 37.0 88 16 176/87 99 Simple Mask 10 05/14/17 06:02 36.6 64 16 156/89 98 Room Air Anesthetic Administered: GA Level of Alertness: Awake, talking PATTON's with Equal Strength: Yes Pain: No Nausea or Vomiting: No CV Function & Hydration Stable: Yes Airway Device: Endotrachial Tube Oxygen Delivery: Simple Mask Lungs: Clear to Auscultation, Normal Air Movement PACU Phase 2 Assessment Complications: No Follow up Care: N/A Patient Instructions Provided: N/A Logan Holloway MD May 14, 2017 13:12
[2017-05-14] MEDS: oxyCODONE-Acetamin 5-325 mg Tablet PO PRN ×2 (13:38→14:37)
--- NOTE | 2017-05-14 13:45 | OP ---
[address] [address] OPERATIVE REPORT PATIENT: GINGER COTTON : 1970 MR#: [id number] ADMIT: 05/14/2017 JOB ID: [id number] DATE OF SURGERY: 05/14/2017 PROCEDURE: 1. Total laparoscopic hysterectomy with right salpingo-oophorectomy. 2. Lysis of adhesions. 3. Cystoscopy. PREOPERATIVE DIAGNOSIS(ES): 1. Chronic pelvic pain. 2. Abnormal uterine bleeding. POSTOPERATIVE DIAGNOSIS(ES): 1. Chronic pelvic pain. 2. Abnormal uterine bleeding. 3. Intra-abdominal adhesions between omentum, sigmoid bowel and adjacent structures. SURGEON: Spike Bradshaw MD. MANAGER INSIDE: Jackie Mejia MD. ANESTHESIA: General. ANESTHESIOLOGIST: Logan Holloway MD. INTRAOPERATIVE CONSULT FROM SURGERY: Familia Mckeon MD. ESTIMATED BLOOD LOSS: 100 mL. ESTIMATED FLUIDS: 2 L of Ringer lactate. ESTIMATED URINE OUTPUT: 200 mL. COMPLICATIONS: None. NOTE: Assistance of Dr. Mejia was necessary for proper exposure of anatomic structures, retraction of and manipulation of the tissue, lysis of adhesions, help with closure of the vaginal cuff. FINDINGS: Normal appearance of the cervix, vagina and perineum. Fibroid uterus, irregular in shape, enlarged moderately, multiple ovarian cysts on the right ovary, adhesions between the ovary, omentum and abdominal wall, adhesions between the sigmoid bowel and anterior abdominal wall, as well as the sigmoid and posterior aspect of the uterus. DESCRIPTION OF PROCEDURE: The patient was brought to the operating room, where she underwent general anesthesia without difficulties. The patient received preoperative antibiotics. She was prepped and draped in the usual surgical fashion. She was placed in the dorsal lithotomy position using Michael stirrups. Time-out was performed, verifying correct patient, correct procedure. Pelvic exam was performed. Decreased mobility of the uterus was noted, and the uterus was diffusely enlarged. The cervix was identified, grasped with a tenaculum and dilated using Hegar dilators to 8 mm. VCare uterine manipulator was placed. Richards catheter was placed as well. All the rest of the instruments were removed. Attention was directed to the patient's abdomen, where topical injection of lidocaine was provided in the periumbilical area. A Veress needle was introduced. The abdomen was insufflated with CO2 gas until appropriate pneumoperitoneum was achieved. A 5 mm subumbilical incision was made with a scalpel, and a 5 mm trocar was placed. The introduction of a 30-degree scope showed adhesions consistent with omentum around the port of entry with limited visualization, so the decision was made to use Watts point for additional entry. A 5 mm incision was made with a scalpel in the left upper quadrant in the Watts point 2 cm below the midclavicular line, and a 5 mm trocar was placed through the incision. The patient was found to have dense adhesions between the omentum, sigmoid bowel and abdominal wall extending from the paraumbilical area down to the left lower quadrant. Two additional incisions were made in the right and left lower quadrants, 5 mm in size, and 5 mm trocars were introduced. The incisions were made 5 cm laterally and superior from the anterior superior iliac spine. Lysis of adhesions was done until the omentum was released and sigmoid bowel wall was visualized. At this point intraoperative surgical consult was called to help with mobilization of the sigmoid bowel. Please refer to the note of Dr. Familia Mckeon for a description of that part of the surgery. When the sigmoid was released and posterior segment of the uterus was freed from the adhesions, the total laparoscopic hysterectomy was continued. Using Thunderbeat instrument, the patient's left part of the round ligament was transected and ligated, it was continued through the anterior and posterior parts of the broad ligament to free the lower part of the left lower uterine segment. Lysis of adhesions was provided. The left uterine artery was skeletonized, transected and ligated with the Thunderbeat instrument. The patient had also adhesions between the bladder and lower uterine segment. They were lysed using Thunderbeat instrument and DeBakey grasper until the bladder was moved away from the operative field and it was possible to palpate the a top of the VCare instrument. Attention was directed to the patient's contralateral side, where the infundibulopelvic ligament was transected and ligated with the Thunderbeat instrument. The patient's right ovary and fallopian tube were dissected, and round ligament was transected and ligated. This was followed by transection and ligation of broad ligament anteriorly and posteriorly with further dissection towards the lower part of the uterus. The right uterine artery was visualized, ligated with a Thunderbeat instrument and transected. Further dissection was done on the right side of the lower uterine segment to finish the bladder flap and mobilize the bladder away from the uterus. With a Thunderbeat instrument, circumferential incision was made around the cervix, the cervix from the vagina. Due to the size of the uterus and distorted anatomy, it took additional time to complete this part of the procedure. When the cervix was dissected from the vagina, the specimen of uterus and right adnexa was removed vaginally. Inflated surgical glove was placed inside of the vagina to maintain a good pneumoperitoneum. The vaginal cuff was reapproximated using 2-0 V-Loc suture. Good hemostasis was achieved, series of images were obtained. The pelvis was irrigated with warm normal saline. The abdomen was desufflated from the CO2 gas after all the instruments and trocars were removed. The abdominal skin incisions were closed using 4-0 Monocryl. Cystoscopy was performed at the end of the procedure using a 70-degree scope. Bladder mucosa was found to be intact. Both ureteral jets were seen confirming the patency of the ureters. The mucosa showed occasional petechia looking like Yuly's ulcers, possibility of interstitial cystitis cannot be excluded. At the completion of cystoscopy, the bladder was drained and the cystoscope was removed. The patient was repositioned back into a supine position. She tolerated the procedure well and was transferred to the recovery room in stable condition. BENJAMIN
--- NOTE | 2017-05-14 19:53 | OP ---
[address] [address] OPERATIVE REPORT PATIENT: GINGER COTTON : 1970 MR#: [id number] ADMIT: 05/14/2017 JOB ID: [id number] DATE OF SURGERY: 05/14/2017 PREOPERATIVE DIAGNOSIS(ES): Chronic pelvic pain, intra-abdominal adhesions. POSTOPERATIVE DIAGNOSIS(ES): Chronic pelvic pain, intra-abdominal adhesions, likely history of diverticulitis. PROCEDURE: Laparoscopic lysis of adhesions. SURGEON: Familia Mckeon MD. TIRE MAINTENANCE TECHNICIAN: Spike Bradshaw MD. INDICATIONS: This is a 46-year-old woman, on whom I have been asked to consult in the operating room due to intra-abdominal adhesions. There had been plans for a laparoscopic hysterectomy with anticipated lysis of adhesions. Dr. Bradshaw has asked me to come in and perform lysis of adhesions around the sigmoid colon. FINDINGS: The patient had dense adhesions to the anterior abdominal wall from the sigmoid colon and from the sigmoid colon to the uterus, consistent with previous diverticulitis. PROCEDURE: I scrubbed in after receiving the intraoperative consult. There were adhesions of the greater omentum and sigmoid colon up to the anterior abdominal wall. I used a combination of the Thunderbeat scissors and blunt dissection to safely dissect this down, including taking a small piece of the anterior abdominal wall to avoid making a colotomy. We inspected the area of the sigmoid colon that had been stuck up to the anterior abdominal wall quite closely and assured ourselves that no inadvertent colotomy had been made. There were further adhesions down towards the pelvic brim that were taken down. Once we had completely freed up the sigmoid colon from the uterus and adnexal structures, I scrubbed out.
== END | disposition home or self-care (01) ==
LOC: SAS 05:43
PROVIDERS: ATTEND Legal Medicine
DX: N93.8 Other specified abnormal uterine and vaginal bleeding (principal); N83.291 Other ovarian cyst, right side; R10.2 Pelvic and perineal pain; D25.9 Leiomyoma of uterus, unspecified; K66.0 Peritoneal adhesions (postprocedural) (postinfection); I10 Essential (primary) hypertension; K86.1 Other chronic pancreatitis; F41.9 Anxiety disorder, unspecified
CPT/HCPCS: 58573; 58660; J0690; J1170; J2250; J2405; J2765; J3010; J7120